=== PATIENT | female | born 1945 | race Caucasian/White ===

== ENCOUNTER 2017-05-07 15:00 | Emergency (ER) | payer MEDICARE, BC ==
--- NOTE | ~2017-05-07 | CR281 ---
[facility] A Service of [facility] RADIOLOGY TEXT RESULTS PATIENT: AMBREEN OSWALD LOCATION: SED : 47 UNIT #: [id number] AGE: [address]: Orly Apple MD SEX: F ORDER DR: [id number] [address] [address] [id number] E MR#: [id number] Acc #: [id number] NAME: AMBREEN OSWALD : 1945 SEX: F STUDY DATE/TIME: 05/07/2017 15:37 UNIT: SED ROOM: STUDY DESCRIPTION: CR Wrist Min 3 View Lt Attending Physician: Orly Apple M.D. Ordering Physician: Orly Apple M.D. Primary Care Physician: Carrol Suarez M.D. MEDICAL IMAGING REPORT This report is preliminary unless electronic signature is present. EXAM Three-views left wrist 05/07/2017 HISTORY 72-year-old female, passed out today. Left wrist pain. COMPARISON None. FINDINGS There is no acute wrist fracture or dislocation. There is approximately 3 mm negative ulnar variance with degenerative changes in the distal radial ulnar joint, with spurring and sclerosis of the ulnar margin at the joint. 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 Mild soft tissue swelling is demonstrated, particularly at the dorsum of the wrist. Osteopenic changes are present which can limit sensitivity for detection of subtle nondisplaced fracture. IMPRESSION 1. Soft tissue swelling is suspected at the dorsum of the left wrist; however, no acute displaced fracture is identified and there is no gross joint dislocation. 2. Osteopenic changes which can limit sensitivity for detection of subtle nondisplaced fracture. 3. Degenerative changes of the left wrist pain, greatest at its radial margin and greatest at the distal radial ulnar joint. Negative 3 mm ulnar variance. [facility] A Service of [facility] RADIOLOGY TEXT RESULTS PATIENT: AMBREEN OSWALD LOCATION: [facility] : [birth year] UNIT #: [id number] AGE: [address]: Orly Apple MD SEX: F ORDER DR: Dictated by... Marley Costa M.D. THIS IS AN ELECTRONICALLY VERIFIED REPORT Marley Costa M.D. at 05/08/2017 8:54 AM DEVON/rosa TD: 05/07/2017 23:08 JOB #: [id number] MEDICAL IMAGING REPORT Page 1 of 1
--- NOTE | ~2017-05-07 | EKG ---
PATIENT: AMBREEN OSWALD UNIT #: [id number] Ventricular Rate: 84 BPM Atrial Rate: 84 BPM P-R Interval: 190 ms QRS Duration: 74 ms Q-T Interval: 394 ms QTC Calculation(Bezet): 465 ms P [place]: 19 degrees Calculated R [place]: 5 degrees Calculated T [place]: 32 degrees Diagnosis Line: Normal sinus rhythm Diagnosis Line: Normal ECG Diagnosis Line: When compared with ECG of 14-DEC-2013 14:19, Diagnosis Line: No significant change was found Diagnosis Line: Confirmed by RUDY DCEKER MD ([id number]) on Diagnosis Line: 05/09/2017 9:47:17 AM INTERPRETING MD: BRIANNE SHARP
--- NOTE | ~2017-05-07 | CR72 ---
[facility] A Service [facility] RADIOLOGY TEXT RESULTS PATIENT: AMBREEN OSWALD LOCATION: SED : 47 UNIT #: [id number] AGE: [address]: Orly Apple MD SEX: F ORDER DR: [id number] [address] [address] [id number] E MR#: [id number] Acc #: [id number] NAME: AMBREEN OSWALD : 1945 SEX: F STUDY DATE/TIME: 05/07/2017 15:37 UNIT: SED ROOM: STUDY DESCRIPTION: CR Chest Single View Portable Attending Physician: Orly Apple M.D. Ordering Physician: Orly Apple M.D. Primary Care Physician: Carrol Suarez M.D. MEDICAL IMAGING REPORT This report is preliminary unless electronic signature is present. EXAM AP portable chest DATE: 05/07/2017 at 15:37 HISTORY Syncopal episode with chest pain today. History of mitral valve prolapse, gastroesophageal reflux disease. COMPARISON AP portable chest 12/14/2013 FINDINGS No acute airspace disease. Heart size is stable, within normal limits. Benign calcified granulomatous changes are present within the right hilum and right lower lobe. Mid-thoracic curvature toward the right, unchanged. No acute osseous abnormalities are identified. IMPRESSION No acute cardiopulmonary findings. No significant change compared to 12/14/2013. Dictated by... Marley Costa M.D. THIS IS AN ELECTRONICALLY VERIFIED REPORT Marley Costa M.D. at 05/08/2017 8:[address] [facility] RADIOLOGY TEXT RESULTS PATIENT: AMBREEN OSWALD LOCATION: SED : 47 UNIT #: [id number] AGE: [address]: Orly Apple MD SEX: F ORDER DR: TD: 05/07/2017 23:18 JOB #: [id number] MEDICAL IMAGING REPORT Page 1 of 1
[~2017-05-07 15:00] MED LIST: ALLEGRA ALLERG180 MG PO; LASIX PO; POTASSIUM PO; PRILOSEC40 MG PO; TOPROL XL50 MG PO; VITAMIN C PO; VITAMIN D5000 UNIT PO; XANAX1 MG PO
[2017-05-07] MEDS ORDERED: BAYER CHEWABLE81 MG (15:13)
[2017-05-07 15:42] LABS: BASOPHIL# 0.1 X10e3 (0-0.3); BASOPHIL% 1.3 % (0-2.5); EOSINOPHIL# 0.1 X10e3 (0-0.7); EOSINOPHIL% 2.5 % (0.0-7.0); HEMATOCRIT 35.7 % (35.0-45.0); HEMOGLOBIN 12.1 gm/dL (12.0-16.0); LYMPHOCYTE# 1.1 X10e3 (1.0-3.5); LYMPHOCYTE% 19.2 % (17.0-45.0); MEAN CELL VOLUME 91.6 FL (83-96); MEAN CORPUSCULAR HEMOGLOBIN 31.2 PG (28-34); MEAN PLATELET VOLUME 7.8 FL (6.5-11.5); MONOCYTE# 0.4 X10e3 (0-1.0); MONOCYTE% 6.3 % (3.0-12.0); NEUTROPHIL# 4.2 X10e3 (1.5-7.1); NEUTROPHIL% 70.7 % (40-75); PLATELET COUNT 206 X10e3 (140-420); RED CELL DISTRIBUTION WIDTH 15.3 % (11.0-15.5); WHITE BLOOD COUNT 5.9 X10e3 (4.0-10.5)
[2017-05-07 15:43] LABS: POC - CKMB <1.0 ng/mL (0.0-7.9); POC - MYOGLOBIN 64.8 ng/mL (0.0-169.0); POC - TROPONIN <0.05 ng/mL (<=0.05)
[2017-05-07 15:44] LABS: DIFF IND NO
[2017-05-07 15:54] LABS: PROTHROMBIN TIME (PATIENT) 11.1 SECONDS (9.5-12.4)
[2017-05-07 16:02] LABS: PARTIAL THROMBOPLASTIN TIME 23.3 SECONDS (25.6-38.1)
[2017-05-07 16:04] LABS: ALBUMIN SERUM 3.8 g/dL (3.5-5.0); BILIRUBIN, DIRECT 0.1 mg/dL (0.0-0.2); BILIRUBIN,INDIRECT 0.4 mg/dL (0.0-0.9); BILIRUBIN,TOTAL 0.5 mg/dL (0.2-2.0); CALCIUM SERUM 8.7 mg/dL (8.4-10.2); GLOM FILT RATE Estimated 56.7 mL/min (>60); MAGNESIUM 2.1 mg/dL (1.6-3.0); POTASSIUM 3.6 mmol/L (3.5-5.1); PROTEIN TOTAL SERUM 7.4 g/dL (6.0-8.3)
[2017-05-07 17:25] LABS: POC - CKMB <1.0 ng/mL (0.0-7.9); POC - MYOGLOBIN 57.3 ng/mL (0.0-169.0); POC - TROPONIN <0.05 ng/mL (<=0.05)
== END 2017-05-07 18:36 ==
LOC: SED 15:00
PROVIDERS: Student in an Organized Health Care Education/Training Program
DX: R07.9 Chest pain, unspecified (principal); R55 Syncope and collapse; S63.502A Unspecified sprain of left wrist, initial encounter; I25.10 Atherosclerotic heart disease of native coronary artery without angina pectoris; I10 Essential (primary) hypertension; F41.9 Anxiety disorder, unspecified; J44.9 Chronic obstructive pulmonary disease, unspecified; K21.9 Gastro-esophageal reflux disease without esophagitis; Z90.49 Acquired absence of other specified parts of digestive tract; Z88.8 Allergy status to other drugs, medicaments and biological substances; Z88.0 Allergy status to penicillin; Z79.899 Other long term (current) drug therapy; X58.XXXA Exposure to other specified factors, initial encounter
CPT/HCPCS: 36415; 71010; 73110; 80048; 80076; 82553; 83690; 83735; 83874; 83880; 84484; 85025; 85610; 85730; 93005; 99285